=== PATIENT | female | born 1985 | race Caucasian/White ===

== ENCOUNTER 2019-02-19 16:14 | Emergency (ER) | payer BC | END 2019-02-19 18:43 | disposition home or self-care (01) | LOC: ED 16:14 ==

== ENCOUNTER 2024-03-27 19:33 | Emergency (ER) | payer SELFPAY ==
[2024-03-27 20:31] VITALS: TEMP 97.7
[2024-03-27 21:19] LABS: Absolute Neutrophil Ct (ANC) 6.71 x10^3/uL (1.56-6.13); BASOPHIL % 0.6 % (0.1-1.2); Basophil (Absolute #) 0.06 x10^3/uL (0.01-0.08); Eosinophil % 1.5 % (0.7-5.8); Eosinophil (Absolute #) 0.15 x10^3/uL (0.04-0.36); Hematocrit 37.9 % (34.1-44.9); Hemoglobin 12.4 g/dL (11.2-15.7); IMMATURE GRAN # 0.07 x10^3u/L (0.001-0.031); IMMATURE GRAN % 0.7 % (0.001-0.429); Lymphocyte (Absolute #) 2.58 x10^3/uL (1.18-3.74); Lymphocytes % 25.1 % (19.3-51.7); Mean Cell Volume 93.1 fL (79.4-94.8); Mean Corpuscular Hemoglobin 30.5 pg (25.6-32.2); Mean Corpuscular Hgb Concent. 32.7 g/dL (32.2-35.5); Monocyte (Absolute #) 0.69 x10^3/uL (0.24-0.86); Monocytes % 6.7 % (4.7-12.5); Neutrophil % 65.4 % (34.0-71.1); Platelet Count 251 x10^3/uL (182-369); Red Blood Count 4.07 x10^6/uL (3.93-5.22); Red Cell Distribution Width 14.4 % (11.7-14.4); White Blood Count 10.3 x10^3/uL (3.98-10.04)
[2024-03-27] MEDS ORDERED: Zofran 4 MG/2 ML VIAL ONE (21:33)
[2024-03-27] MEDS ORDERED: MORPHINE SULFATE 4 MG INJ ONE (21:34)
[2024-03-27] MEDS ORDERED: Sodium Chloride 0.9% 1000 ML 1,000 ML ONE (21:34)
[2024-03-27] MEDS: Zofran 4 MG/2 ML VIAL IV ONE (21:35)
[2024-03-27] MEDS: MORPHINE SULFATE 4 MG INJ IV ONE (21:35)
[2024-03-27] MEDS: Sodium Chloride 0.9% 1000 ML 1,000 ML IV STA (21:35)
[2024-03-27 21:36] LABS: ALBUMIN 4.4 g/dL (3.5-5.0); ANION GAP 12.3 MEQ/L (5-15); BILIRUBIN,TOTAL 0.5 mg/dL (0.2-1.3); Calcium 9.5 mg/dL (8.4-10.2); Creatinine 1 0.61 mg/dL (0.52-1.04); EST GLOMERULAR FILTRATION RATE 117.3 ML/MIN; Potassium 4.4 mmol/L (3.5-5.1); Total Protein 7.8 g/dL (6.3-8.2)
[2024-03-27 23:07] VITALS: RESP 17
--- NOTE | 2024-03-27 23:33 | ERPHSYRPT ---
- History of Present Illness Time Seen by Provider: 03/27/24 21:00 Source: patient Exam Limitations: no limitations Patient Subjective Stated Complaint: c/o of vomiting blood Triage Nursing Assessment: Pt brought to ED by with c/o of vomiting blood. Patient states that she has recently tried to stop drinking alcohol. Patient went to [facility] on Tuesday for viral illness and was prescribed amoxicillin. Pt went to see her [employer] today for sinus infection today at 1115. Pt states she has a hx of bulimia since 2019, hypertensive, gait steady, pulses normal, bowel sounds present in all 4 quads, no tender with palpatation, last BM was this morning, last oral instake was today around 1800, pt doesn't appear to be in any distress at this time. Physician History: 39-year-old female presents to our ED for evaluation of hematemesis and epigastric pain. Patient states she is bulimic. Patient had an episode of [facility] ed emesis today. Patient observed blood in her vomitus coupled with epigastric pain. Patient became concerned and came to our ED. No trauma no fever. No chest pain or shortness of breath. Symptoms are mild to moderate in intensity. No radiation of pain. Patient otherwise feels well. She voices no other complaints or concerns at this time. Portions of this note were created with voice recognition technology. There may be grammatical, spelling, punctuation or sound alike errors Timing/Duration: today Severity: moderate Modifying Factors: Improves With: nothing Associated Symptoms: denies symptoms Allergies/Adverse Reactions: No Known Drug Allergies Allergy (Verified 03/27/24 20:30) Home Medications: Estradiol 1 mg [Estrace 1 mg] 1 mg PO DAILY 02/19/19 [History] Amoxicillin [AMOXIL 250 MG CAPSULE] 250 mg PO BID 03/27/24 [History] Ascorbic Acid [Vitamin C] 1,000 mg PO DAILY 03/27/24 [History] Calcium Carb, Citrate/Vit D3 [Calcium + D3 ER Tablet] 1 tab PO DAILY 03/27/24 [History] Magnesium 200 mg PO HS 03/27/24 [History] Zinc Amino Acid Chelate [Zinc] 50 mg PO DAILY 03/27/24 [History] Hx Tetanus, Diphtheria Vaccination/Date Given: No Hx Influenza Vaccination/Date Given: No Hx Pneumococcal Vaccination/Date Given: No Travel Risk - International Travel Have you traveled outside of the country in past 3 weeks: No - Emerging Infectious Disease Are you exhibiting symptoms associated with any current EIDs: No - Review of Systems Constitutional: No Symptoms, No Fever, No Chills Eyes: No Symptoms Ears, Nose, & Throat: No Symptoms Respiratory: No Symptoms, No Cough, No Dyspnea Cardiac: No Symptoms, No Chest Pain, No Edema, No Syncope Abdominal/Gastrointestinal: No Symptoms, No Abdominal Pain, No Nausea, No Vomiting, No Diarrhea Genitourinary Symptoms: No Symptoms, No Dysuria Musculoskeletal: No Symptoms, No Back Pain, No Neck Pain Skin: No Symptoms, No Rash Neurological: No Symptoms, No Dizziness, No Focal Weakness, No Sensory Changes Psychological: No Symptoms Endocrine: No Symptoms Hematologic/Lymphatic: No Symptoms Immunological/Allergic: No Symptoms All Other Systems: Reviewed and Negative - Past Medical History Pertinent Past Medical History: No Neurological History: No Pertinent History ENT History: No Pertinent History Cardiac History: No Pertinent History Respiratory History: No Pertinent History Endocrine Medical History: No Pertinent History Musculoskeletal History: No Pertinent History GI Medical History: No Pertinent History, Other History: No Pertinent History Psycho-Social History: No Pertinent History Female Reproductive Disorders: No Pertinent History Other Medical History: buliemia - Past Surgical History Past Surgical History: Yes Neuro Surgical History: No Pertinent History Cardiac: No Pertinent History Respiratory: No Pertinent History Gastrointestinal: Hernia Repair Genitourinary: No Pertinent History Musculoskeletal: No Pertinent History Female Surgical History: Hysterectomy - Female History Hx Last Menstrual Period: hysterectomy 2019 Hx Now: No - Social History Smoking Status: Current every day smoker How long have you smoked: 15 Exposure to second hand smoke: No Drug Use: none Patient Lives Alone: No - Social Determinants of Health Will the patient participate in the screening: Yes Do you worry about a steady place to live?: No Do you have any problems with any of the following?: No known problems In the past 12 months,have you had to go without utilities?: No Transportation Issues: No Has anyone in your support network made you feel unsafe?: No Have you or anyone in your house had to go without enough: No - Nursing Vital Signs Nursing Vital Signs: Initial Vital Signs Temperature 97.7 F 03/27/24 20:13 Pulse Rate 87 03/27/24 20:13 Respiratory Rate 16 03/27/24 20:13 Blood Pressure 171/114 03/27/24 20:13 O2 Sat by Pulse Oximetry 97 03/27/24 20:13 Pain Scale Pain Intensity 8 - Physical Exam General Appearance: no apparent distress, alert Eye Exam: PERRL/EOMI, eyes nml inspection Ears, Nose, Throat Exam: normal ENT inspection, pharynx normal, moist mucous membranes Neck Exam: normal inspection, non-tender, supple, full range of motion Respiratory Exam: normal breath sounds, lungs clear, No respiratory distress Cardiovascular Exam: regular rate/rhythm, normal heart sounds, normal peripheral pulses Gastrointestinal/Abdomen Exam: soft, normal bowel sounds, other (Epic gastric tenderness), No tenderness, No mass Back Exam: normal inspection, normal range of motion, No CVA tenderness, No vertebral tenderness Extremity Exam: normal inspection, normal range of motion, pelvis stable Neurologic Exam: alert, oriented x 3, cooperative, normal mood/affect, nml cerebellar function, nml station & gait, sensation nml, No motor deficits Skin Exam: normal color, warm, dry, No rash Lymphatic Exam: No adenopathy SpO2 Interpretation: normal SpO2: 94 O2 Delivery: Room Air - Course Nursing assessment & vital signs reviewed: Yes - CT Exams Abdomen/Pelvis CT Interpretation: Tele-radiologist Report (No acute findings) Ordered Tests: Active Orders 24 hr Category Date Time Status IV Insertion STAT Care 03/27/24 21:12 Active ABDOMEN AND PELVIS W/0 CONTRAS [CT] Stat Exams 03/27/24 21:12 Taken CBC W DIFF Stat Lab 03/27/24 21:17 Completed CMP Stat Lab 03/27/24 21:17 Completed HCG QUALITATIVE, URINE Stat Lab 03/27/24 23:34 Completed LIPASE Stat Lab 03/27/24 21:17 Completed TROPONIN Q4H Lab 03/27/24 21:17 Completed TROPONIN Q4H Lab 03/28/24 01:15 Ordered TROPONIN Q4H Lab 03/28/24 05:15 Ordered Medication Summary Generic Name Dose Route Start Last Admin Trade Name Freq PRN Reason Stop Dose Admin Pantoprazole Sodium 40 mg 03/27/24 23:53 Pantoprazole 40 Mg Vial IV 03/27/24 23:54 STAT ONE Discontinued Medications Generic Name Dose Route Start Last Admin Trade Name Freq PRN Reason Stop Dose Admin Al Hydrox/Mg Hydrox/Simethicone Confirm 03/27/24 23:51 Mag Hydrox/Al Hydrox/Simeth 30 Ml Udcup Administered 03/27/24 23:52 Dose 30 ml .ROUTE .STK-MED ONE Sodium Chloride 1,000 mls @ 999 mls/hr 03/27/24 21:12 03/27/24 22:47 Sodium Chloride 0.9% 1000 Ml IV 03/27/24 22:12 Infused .Q1H1M STA Infusion Sodium Chloride Confirm 03/27/24 21:34 Sodium Chloride 0.9% 1000 Ml Administered 03/27/24 21:35 Dose 1,000 mls @ ud .ROUTE .STK-MED ONE Lidocaine HCl Confirm 03/27/24 23:51 Lidocaine Hcl 2% Viscous 15 Ml Udcup Administered 03/27/24 23:52 Dose 15 ml .ROUTE .STK-MED ONE Magnesium Hydroxide 45 ml 03/27/24 23:38 Mag Hydrx/Alum Hyd/Simeth/Lido 45 Ml Bottle PO 03/27/24 23:39 STAT ONE Morphine Sulfate 4 mg 03/27/24 21:12 03/27/24 21:35 Morphine Sulfate 4 Mg/Ml Injection IV 03/27/24 21:13 4 mg STAT ONE Administration Morphine Sulfate Confirm 03/27/24 21:34 Morphine Sulfate 4 Mg/Ml Injection Administered 03/27/24 21:35 Dose 4 mg .ROUTE .STK-MED ONE Ondansetron HCl 4 mg 03/27/24 21:12 03/27/24 21:35 Ondansetron Hcl 4 Mg/2 Ml Vial IV 03/27/24 21:13 4 mg STAT ONE Administration Ondansetron HCl Confirm 03/27/24 21:33 Ondansetron Hcl 4 Mg/2 Ml Vial Administered 03/27/24 21:34 Dose 4 mg .ROUTE .STK-MED ONE Lab/Rad Data: Laboratory Result Diagrams 03/27/24 21:17 03/27/24 21:17 Laboratory Results 03/27/24 03/27/24 03/27/24 Range/Units 23:34 21:17 21:17 WBC (3.98-10.04) x10^3/uL RBC (3.93-5.22) x10^6/uL Hgb (11.2-15.7) g/dL Hct (34.1-44.9) % MCV (79.4-94.8) fL MCH (25.6-32.2) pg MCHC (32.2-35.5) g/dL RDW (11.7-14.4) % Plt Count (182-369) x10^3/uL MPV (9.4-12.3) fL Gran % (34.0-71.1) % Immature Gran % (Auto) (0.001-0.429) % Nucleat RBC Rel Count (0.00-0.2) % Eos # (Auto) (0.04-0.36) x10^3/uL Immature Gran # (Auto) (0.001-0.031) x10^3u/L Absolute Lymphs (auto) (1.18-3.74) x10^3/uL Absolute Monos (auto) (0.24-0.86) x10^3/uL Absolute Nucleated RBC (0.00-0.012) x10^3u/L Lymphocytes % (19.3-51.7) % Monocytes % (4.7-12.5) % Eosinophils % (0.7-5.8) % Basophils % (0.1-1.2) % Absolute Granulocytes (1.56-6.13) x10^3/uL Basophils # (0.01-0.08) x10^3/uL Sodium 140 (135-145) mmol/L Potassium 4.4 (3.5-5.1) mmol/L Chloride 107 (98-107) mmol/L Carbon Dioxide 25 (22-30) mmol/L Anion Gap 12.3 (5-15) MEQ/L BUN 9 (7-17) mg/dL Creatinine 0.61 (0.52-1.04) mg/dL Estimated GFR 117.3 ML/MIN Glucose 94 (74-106) mg/dL Calcium 9.5 (8.4-10.2) mg/dL Total Bilirubin 0.50 (0.2-1.3) mg/dL AST 38 H (14-36) U/L ALT 26 (0-35) U/L Alkaline Phosphatase 66 (38-126) U/L Troponin I < 0.012 (0.000-0.033) ng/mL Serum Total Protein 7.8 (6.3-8.2) g/dL Albumin 4.4 (3.5-5.0) g/dL Lipase 280 (23-300) U/L Urine HCG, Qual NEGATIVE (NEGATIVE) 03/27/24 Range/Units 21:17 WBC 10.3 H (3.98-10.04) x10^3/uL RBC 4.07 (3.93-5.22) x10^6/uL Hgb 12.4 (11.2-15.7) g/dL Hct 37.9 (34.1-44.9) % MCV 93.1 (79.4-94.8) fL MCH 30.5 (25.6-32.2) pg MCHC 32.7 (32.2-35.5) g/dL RDW 14.4 (11.7-14.4) % Plt Count 251 (182-369) x10^3/uL MPV 10.0 (9.4-12.3) fL Gran % 65.4 (34.0-71.1) % Immature Gran % (Auto) 0.7 H (0.001-0.429) % Nucleat RBC Rel Count 0.0 (0.00-0.2) % Eos # (Auto) 0.15 (0.04-0.36) x10^3/uL Immature Gran # (Auto) 0.07 H (0.001-0.031) x10^3u/L Absolute Lymphs (auto) 2.58 (1.18-3.74) x10^3/uL Absolute Monos (auto) 0.69 (0.24-0.86) x10^3/uL Absolute Nucleated RBC 0.00 (0.00-0.012) x10^3u/L Lymphocytes % 25.1 (19.3-51.7) % Monocytes % 6.7 (4.7-12.5) % Eosinophils % 1.5 (0.7-5.8) % Basophils % 0.6 (0.1-1.2) % Absolute Granulocytes 6.71 H (1.56-6.13) x10^3/uL Basophils # 0.06 (0.01-0.08) x10^3/uL Sodium (135-145) mmol/L Potassium (3.5-5.1) mmol/L Chloride (98-107) mmol/L Carbon Dioxide (22-30) mmol/L Anion Gap (5-15) MEQ/L BUN (7-17) mg/dL Creatinine (0.52-1.04) mg/dL Estimated GFR ML/MIN Glucose (74-106) mg/dL Calcium (8.4-10.2) mg/dL Total Bilirubin (0.2-1.3) mg/dL AST (14-36) U/L ALT (0-35) U/L Alkaline Phosphatase (38-126) U/L Troponin I (0.000-0.033) ng/mL Serum Total Protein (6.3-8.2) g/dL Albumin (3.5-5.0) g/dL Lipase (23-300) U/L Urine HCG, Qual (NEGATIVE) - Progress Progress: improved Progress Note: Spoke to Dr. Jed Acosta at 1150 regarding concerns for possible Meka-Arreola tear in light of patient's forced vomiting and bleeding. Negative workup in our ED patient's pain is well-controlled. Per Dr. Acosta patient may be discharged home with follow-up in his office. I provided Dr. Acosta patient's name and date of for follow-up. 39-year-old female bulimic presents to our ED for evaluation of some hematemesis post forced vomiting. Hematemesis associated with some epigastric discomfort. No chest pain or shortness of breath. Patient's vomiting was self-induced. Physical exam reveals some epigastric tenderness. Laboratory workup essentially nonremarkable. CT abdomen pelvis essentially nonremarkable. Patient tolerating p.o. No hematemesis observed in our ED. Patient received a GI cocktail as well as a dose of Protonix. Morphine administered for pain control. Patient resting comfortably. No active pain. We will discharge patient home with general surgery follow-up. Portions of this note were created with voice recognition technology. There may be grammatical, spelling, punctuation or sound alike errors 03/27/24 23:50 Complexity problem addressed is moderate acute complicated. No critical care time. Complex data reviewed and analyzed is extensive. Test ordered test reviewed results analyzed and correlated clinically with history and physical exam. Management discussed with general surgery who will follow-up with patient on an outpatient basis. Plan of care discussed with patient. She agrees to follow-up as discussed. Risk of complication and or risk of morbidity/mortality of patient management is moderate. A prescription for Protonix forwarded to patient's pharmacy per Dr. Acosta's recommendations. Vital stable. Time spent to discharge patient is approximately 20 minutes. Plan of care established for shared decision making. No social determinants of health present to impede follow-up. Portions of this note were created with voice recognition technology. There may be grammatical, spelling, punctuation or sound alike errors 03/27/24 23:53 Discussed with : Ana (Case discussed with Dr. Deonte Acosta 1150) Counseled pt/family regarding: lab results, diagnosis, need for follow-up, rad results - Departure Departure Disposition: Home Clinical Impression: Bulimia, Hematemesis Condition: Stable Critical Care Time: No Referrals: JUDY VAZQUEZ [Primary Care Provider] - Follow up/PCP as directed Additional Instructions: Discharge/Care Plan YOSSI DEL ANGEL was seen on 03/27/24 in the Emergency Room. The patient was counseled regarding Diagnosis,Lab results, Imaging studies, need for follow up and when to return to the Emergency Room. Prescriptions given: Discharge Note I have spoken with the patient and/or caregivers. I have explained the patient's condition, diagnosis and treatment plan based on the information available to me at this time. I have answered the patient's and/or caregiver's questions and addressed any concerns. The patient and/or caregivers have as good understanding of the patient's diagnosis, condition and treatment plan as can be expected at this point. The vital signs have been stable. The patient's condition is stable and appropriate for discharge from the emergency department. The patient will pursue further outpatient evaluation with the primary care physician or other designated or consulting physician as outlined in the discharge instructions. The patient and/or caregivers are agreeable to this plan of care and follow-up instructions have been explained in detail. The patient and/or caregivers have received these instruction. The patient/and or caregivers are aware that any significant change in condition or worsening of symptoms should prompt an immediate return to this or the closest emergency department or call 911. Prescriptions: PANTOPRAZOLE 40 mg Tablet [Protonix 40MG Tablet] 40 mg PO QPM 14 Days #14 tab
[2024-03-27 23:39] LABS: HCG URINE TEST NEGATIVE (NEGATIVE)
[2024-03-27] MEDS ORDERED: XYLOCAINE VISCOUS 2% 15 ML CUP ONE (23:51)
[2024-03-27] MEDS ORDERED: MAALOX ES 30 ML UNIT DOSE ONE (23:51)
[2024-03-27] MEDS: GI COCKTAIL 45 ML (Maalox/Lidocaine) PO ONE (23:52)
[2024-03-27] MEDS ORDERED: PROTONIX 40 MG IV IV ONE (23:59)
[2024-03-28] MEDS: PROTONIX 40 MG IV IV ONE
[2024-03-28 00:02] VITALS: BP 125/92; PULSE 77
[2024-03-28 00:06] VITALS: O2SAT 94
--- NOTE | 2024-03-28 08:48 | XRAY ---
Indication: Pain. Multiple contiguous axial images obtained through the abdomen and pelvis without contrast. Comparison: None Lung bases clear. Heart not enlarged. Noncontrasted stomach and bowel loops appear nonobstructed with normal appendix. Previous hysterectomy. No free fluid/air. Remaining liver, gallbladder, pancreas, spleen, adrenal glands, kidneys, ureters, bladder, and aorta are unremarkable for noncontrast exam. Osseous structures intact with mild/moderate degenerative changes throughout the visualized spine and minimal dextroscoliosis centered at L3. No ventral or inguinal hernias. Impression: Chronic bony findings. Remaining CT abdomen/pelvis without contrast exam is negative.
== END 2024-03-28 00:20 | disposition home or self-care (01) ==
LOC: ED 19:33
DX: F50.20 Bulimia nervosa, unspecified (principal); K92.0 Hematemesis; R10.13 Epigastric pain; Z79.899 Other long term (current) drug therapy; Z72.0 Tobacco use
CPT/HCPCS: 36000; 36415; 74176; 80053; 81025; 83690; 84484; 85025; 96374; 96375; 99284; J2270; J2405; A9270-GY

== ENCOUNTER 2024-06-01 11:04 | Emergency (ER) | payer OTHER ==
--- NOTE | 2024-06-01 11:07 | ERPHSYRPT ---
- History of Present Illness Time Seen by Provider: 06/01/24 11:07 Source: patient, old records Exam Limitations: clinical condition Physician History: This is a 39-year-old white female patient who arrives by private vehicle anxious and tearful. Patient states that she wants help with her alcohol use disorder. Patient states that she drinks alcohol often and she supposedly "passed out" at 3:00 this morning. 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 Patient was brought to the hospital by family member. Patient also has been coughing and has substernal, central discomfort with coughing. There is no radiation of pain. Patient has no documented history of coronary artery disease. Patient does have a history of gastroesophageal reflux disease and h istory of bulimia. She has no known drug allergies and she currently takes no medications chronically. She has had a hysterectomy in the past. Patient is not having any hallucinations. She denies suicidal or homicidal ideation. Timing/Duration: today Allergies/Adverse Reactions: No Known Drug Allergies Allergy (Verified 06/01/24 11:19) Home Medications: No Reportable Medications [No Reported Medications] 06/01/24 [History] Hx Tetanus, Diphtheria Vaccination/Date Given: No Hx Influenza Vaccination/Date Given: No Hx Pneumococcal Vaccination/Date Given: No Travel Risk - Emerging Infectious Disease Are you exhibiting symptoms associated with any current EIDs: No - Past Medical History Pertinent Past Medical History: No Neurological History: No Pertinent History ENT History: No Pertinent History Cardiac History: No Pertinent History Respiratory History: No Pertinent History Endocrine Medical History: No Pertinent History Musculoskeletal History: No Pertinent History GI Medical History: No Pertinent History, Other History: No Pertinent History Psycho-Social History: No Pertinent History Female Reproductive Disorders: No Pertinent History Other Medical History: buliemia - Past Surgical History Past Surgical History: Yes Neuro Surgical History: No Pertinent History Cardiac: No Pertinent History Respiratory: No Pertinent History Gastrointestinal: Hernia Repair Genitourinary: No Pertinent History Musculoskeletal: No Pertinent History Female Surgical History: No Pertinent History - Female History Hx Last Menstrual Period: 12/09/13 - Social History Smoking Status: Current every day smoker How long have you smoked: 15 Exposure to second hand smoke: No Drug Use: none Patient Lives Alone: No - Social Determinants of Health Will the patient participate in the screening: Yes Do you worry about a steady place to live?: No In the past 12 months,have you had to go without utilities?: No Transportation Issues: No Has anyone in your support network made you feel unsafe?: No Have you or anyone in your house had to go without enough: No - Nursing Vital Signs Nursing Vital Signs: Initial Vital Signs Temperature 98.0 F 06/01/24 11:07 Pulse Rate 107 H 06/01/24 11:07 Respiratory Rate 15 06/01/24 11:07 Blood Pressure 170/104 06/01/24 11:07 O2 Sat by Pulse Oximetry 99 06/01/24 11:07 Pain Scale Pain Intensity 0 - Course Nursing assessment & vital signs reviewed: Yes EKG Interpreted by Me: RATE (91), Sinus Rhythm, NORMAL AXIS, NORMAL INTERVALS, NORMAL QRS, Other (No acute ischemia. QTc 446.) Ordered Tests: Active Orders 24 hr Category Date Time Status Bill Board Poster STAT Care 06/01/24 11:28 Active Clean Catch Urine Specimen STAT Care 06/01/24 11:28 Active EKG-ER Only STAT Care 06/01/24 11:28 Active IV Insertion STAT Care 06/01/24 11:28 Active CHEST 1 VIEW (PORTABLE) Stat Exams 06/01/24 11:30 Completed ACETAMINOPHEN Stat Lab 06/01/24 11:40 Completed AMYLASE Stat Lab 06/01/24 11:06 Completed CBC W DIFF Stat Lab 06/01/24 11:28 Completed CMP Stat Lab 06/01/24 11:40 Completed ETHYL ALCOHOL Stat Lab 06/01/24 11:40 Completed LIPASE Stat Lab 06/01/24 11:06 Completed MAGNESIUM Stat Lab 06/01/24 11:40 Completed SALICYLATE Stat Lab 06/01/24 11:40 Completed TROPONIN Q4H Lab 06/01/24 11:40 Completed TROPONIN Q4H Lab 06/01/24 15:55 Received TROPONIN Q4H Lab 06/01/24 19:45 Ordered TROPONIN Q4H Lab 06/01/24 23:45 Ordered UA W/RFX UR CULTURE Stat Lab 06/01/24 11:33 Completed Urine Triage Profile Stat Lab 06/01/24 11:33 Completed Medication Summary Discontinued Medications Generic Name Dose Route Start Last Admin Trade Name Freq PRN Reason Stop Dose Admin Sodium Chloride 1,000 mls @ 999 mls/hr 06/01/24 11:30 06/01/24 12:40 Sodium Chloride 0.9% 1000 Ml IV 06/01/24 12:30 Infused .Q1H1M STA Infusion Sodium Chloride Confirm 06/01/24 11:34 Sodium Chloride 0.9% 1000 Ml Administered 06/01/24 11:35 Dose 1,000 mls @ ud .ROUTE .STK-MED ONE Lorazepam 1 mg 06/01/24 11:28 06/01/24 11:35 Lorazepam 2 Mg/1 Ml 2 Mg Vial IV 06/01/24 11:29 1 mg STAT ONE Administration Lorazepam Confirm 06/01/24 11:34 Lorazepam 2 Mg/1 Ml 2 Mg Vial Administered 06/01/24 11:35 Dose 2 mg .ROUTE .STK-MED ONE Ondansetron HCl 4 mg 06/01/24 11:28 06/01/24 11:35 Ondansetron Hcl 4 Mg/2 Ml Vial IV 06/01/24 11:29 4 mg STAT ONE Administration Ondansetron HCl Confirm 06/01/24 11:33 Ondansetron Hcl 4 Mg/2 Ml Vial Administered 06/01/24 11:34 Dose 4 mg .ROUTE .STK-MED ONE Pantoprazole Sodium 40 mg 06/01/24 11:40 06/01/24 11:43 Pantoprazole 40 Mg Vial IV 06/01/24 11:41 40 mg STAT ONE Administration Pantoprazole Sodium Confirm 06/01/24 11:42 Pantoprazole 40 Mg Vial Administered 06/01/24 11:43 Dose 40 mg IV .STK-MED ONE Lab/Rad Data: Laboratory Result Diagrams 06/01/24 11:28 06/01/24 11:40 Laboratory Results 06/01/24 06/01/24 06/01/24 Range/Units 12:12 11:40 11:40 WBC (3.98-10.04) x10^3/uL RBC (3.93-5.22) x10^6/uL Hgb (11.2-15.7) g/dL Hct (34.1-44.9) % MCV (79.4-94.8) fL MCH (25.6-32.2) pg MCHC (32.2-35.5) g/dL RDW (11.7-14.4) % Plt Count (182-369) x10^3/uL MPV (9.4-12.3) fL Gran % (34.0-71.1) % Immature Gran % (Auto) (0.001-0.429) % Nucleat RBC Rel Count (0.00-0.2) % Eos # (Auto) (0.04-0.36) x10^3/uL Immature Gran # (Auto) (0.001-0.031) x10^3u/L Absolute Lymphs (auto) (1.18-3.74) x10^3/uL Absolute Monos (auto) (0.24-0.86) x10^3/uL Absolute Nucleated RBC (0.00-0.012) x10^3u/L Lymphocytes % (19.3-51.7) % Monocytes % (4.7-12.5) % Eosinophils % (0.7-5.8) % Basophils % (0.1-1.2) % Absolute Granulocytes (1.56-6.13) x10^3/uL Basophils # (0.01-0.08) x10^3/uL Sodium 136 (135-145) mmol/L Potassium 4.2 (3.5-5.1) mmol/L Chloride 102 (98-107) mmol/L Carbon Dioxide 20 L (22-30) mmol/L Anion Gap 17.5 H (5-15) MEQ/L BUN 11 (7-17) mg/dL Creatinine 0.55 (0.52-1.04) mg/dL Estimated GFR 120.3 ML/MIN Glucose 93 (74-106) mg/dL Calcium 10.3 H (8.4-10.2) mg/dL Magnesium 1.5 L (1.6-2.3) mg/dL Total Bilirubin 0.70 (0.2-1.3) mg/dL AST 86 H (14-36) U/L ALT 65 H (0-35) U/L Alkaline Phosphatase 77 (38-126) U/L Troponin I < 0.012 (0.000-0.033) ng/mL Serum Total Protein 7.8 (6.3-8.2) g/dL Albumin 4.7 (3.5-5.0) g/dL Amylase (30-110) U/L Lipase (23-300) U/L Urine Color (Yellow) Urine Appearance (Clear) Urine pH (4.6-8.0) Ur Specific [place] (1.005-1.030) Urine Protein (Negative) Urine Glucose (UA) (Negative) mg/dL Urine Ketones (Negative) Urine Blood (Negative) Urine Nitrite (Negative) Urine Bilirubin (Negative) Urine Urobilinogen (0.2) mg/dL Ur Leukocyte Esterase (Negative) U Hyaline Cast (Auto) (0-2) /LPF Urine Microscopic RBC (0-5) /HPF Urine Microscopic WBC (0-5) /HPF Ur Epithelial Cells (None Seen) /HPF Urine Bacteria (None Seen) /HPF Urine Culture Reflexed (NO) Salicylates < 1.0 L (2-20) mg/dL Urine Opiates Level (NEGATIVE) Ur Methadone (NEGATIVE) Acetaminophen < 10 L (10-30) ug/ml Urine Barbiturates (NEGATIVE) Ur Phencyclidine (PCP) (NEGATIVE) Urine Amphetamine (NEGATIVE) U Benzodiazepine Level (NEGATIVE) Urine Cocaine (NEGATIVE) Urine Marijuana (THC) (NEGATIVE) Ethyl Alcohol < 10 (0-10) mg/dL Influenza Type A Ag NEGATIVE (NEGATIVE) Influenza Type B Ag NEGATIVE (NEGATIVE) RSV (PCR) NEGATIVE (NEGATIVE) SARS-CoV-2 (PCR) NEGATIVE (NEGATIVE) 06/01/24 06/01/24 06/01/24 Range/Units 11:33 11:33 11:28 WBC 8.6 (3.98-10.04) x10^3/uL RBC 4.31 (3.93-5.22) x10^6/uL Hgb 13.0 (11.2-15.7) g/dL Hct 39.0 (34.1-44.9) % MCV 90.5 (79.4-94.8) fL MCH 30.2 (25.6-32.2) pg MCHC 33.3 (32.2-35.5) g/dL RDW 14.6 H (11.7-14.4) % Plt Count 251 (182-369) x10^3/uL MPV 9.6 (9.4-12.3) fL Gran % 61.4 (34.0-71.1) % Immature Gran % (Auto) 0.9 H (0.001-0.429) % Nucleat RBC Rel Count 0.0 (0.00-0.2) % Eos # (Auto) 0.10 (0.04-0.36) x10^3/uL Immature Gran # (Auto) 0.08 H (0.001-0.031) x10^3u/L Absolute Lymphs (auto) 2.54 (1.18-3.74) x10^3/uL Absolute Monos (auto) 0.55 (0.24-0.86) x10^3/uL Absolute Nucleated RBC 0.00 (0.00-0.012) x10^3u/L Lymphocytes % 29.4 (19.3-51.7) % Monocytes % 6.4 (4.7-12.5) % Eosinophils % 1.2 (0.7-5.8) % Basophils % 0.7 (0.1-1.2) % Absolute Granulocytes 5.30 (1.56-6.13) x10^3/uL Basophils # 0.06 (0.01-0.08) x10^3/uL Sodium (135-145) mmol/L Potassium (3.5-5.1) mmol/L Chloride (98-107) mmol/L Carbon Dioxide (22-30) mmol/L Anion Gap (5-15) MEQ/L BUN (7-17) mg/dL Creatinine (0.52-1.04) mg/dL Estimated GFR ML/MIN Glucose (74-106) mg/dL Calcium (8.4-10.2) mg/dL Magnesium (1.6-2.3) mg/dL Total Bilirubin (0.2-1.3) mg/dL AST (14-36) U/L ALT (0-35) U/L Alkaline Phosphatase (38-126) U/L Troponin I (0.000-0.033) ng/mL Serum Total Protein (6.3-8.2) g/dL Albumin (3.5-5.0) g/dL Amylase (30-110) U/L Lipase (23-300) U/L Urine Color Yellow (Yellow) Urine Appearance Clear (Clear) Urine pH 7.5 (4.6-8.0) Ur Specific [place] <=1.005 (1.005-1.030) Urine Protein Negative (Negative) Urine Glucose (UA) Negative (Negative) mg/dL Urine Ketones Negative (Negative) Urine Blood Negative (Negative) Urine Nitrite Negative (Negative) Urine Bilirubin Negative (Negative) Urine Urobilinogen 0.2 (0.2) mg/dL Ur Leukocyte Esterase Trace A (Negative) U Hyaline Cast (Auto) NONE SEEN (0-2) /LPF Urine Microscopic RBC 0-2 (0-5) /HPF Urine Microscopic WBC 3-5 (0-5) /HPF Ur Epithelial Cells Few (None Seen) /HPF Urine Bacteria None Seen (None Seen) /HPF Urine Culture Reflexed NO (NO) Salicylates (2-20) mg/dL Urine Opiates Level NEGATIVE (NEGATIVE) Ur Methadone NEGATIVE (NEGATIVE) Acetaminophen (10-30) ug/ml Urine Barbiturates NEGATIVE (NEGATIVE) Ur Phencyclidine (PCP) NEGATIVE (NEGATIVE) Urine Amphetamine NEGATIVE (NEGATIVE) U Benzodiazepine Level NEGATIVE (NEGATIVE) Urine Cocaine NEGATIVE (NEGATIVE) Urine Marijuana (THC) NEGATIVE (NEGATIVE) Ethyl Alcohol (0-10) mg/dL Influenza Type A Ag (NEGATIVE) Influenza Type B Ag (NEGATIVE) RSV (PCR) (NEGATIVE) SARS-CoV-2 (PCR) (NEGATIVE) 06/01/24 Range/Units 11:06 WBC (3.98-10.04) x10^3/uL RBC (3.93-5.22) x10^6/uL Hgb (11.2-15.7) g/dL Hct (34.1-44.9) % MCV (79.4-94.8) fL MCH (25.6-32.2) pg MCHC (32.2-35.5) g/dL RDW (11.7-14.4) % Plt Count (182-369) x10^3/uL MPV (9.4-12.3) fL Gran % (34.0-71.1) % Immature Gran % (Auto) (0.001-0.429) % Nucleat RBC Rel Count (0.00-0.2) % Eos # (Auto) (0.04-0.36) x10^3/uL Immature Gran # (Auto) (0.001-0.031) x10^3u/L Absolute Lymphs (auto) (1.18-3.74) x10^3/uL Absolute Monos (auto) (0.24-0.86) x10^3/uL Absolute Nucleated RBC (0.00-0.012) x10^3u/L Lymphocytes % (19.3-51.7) % Monocytes % (4.7-12.5) % Eosinophils % (0.7-5.8) % Basophils % (0.1-1.2) % Absolute Granulocytes (1.56-6.13) x10^3/uL Basophils # (0.01-0.08) x10^3/uL Sodium (135-145) mmol/L Potassium (3.5-5.1) mmol/L Chloride (98-107) mmol/L Carbon Dioxide (22-30) mmol/L Anion Gap (5-15) MEQ/L BUN (7-17) mg/dL Creatinine (0.52-1.04) mg/dL Estimated GFR ML/MIN Glucose (74-106) mg/dL Calcium (8.4-10.2) mg/dL Magnesium (1.6-2.3) mg/dL Total Bilirubin (0.2-1.3) mg/dL AST (14-36) U/L ALT (0-35) U/L Alkaline Phosphatase (38-126) U/L Troponin I (0.000-0.033) ng/mL Serum Total Protein (6.3-8.2) g/dL Albumin (3.5-5.0) g/dL Amylase 82 (30-110) U/L Lipase 217 (23-300) U/L Urine Color (Yellow) Urine Appearance (Clear) Urine pH (4.6-8.0) Ur Specific [place] (1.005-1.030) Urine Protein (Negative) Urine Glucose (UA) (Negative) mg/dL Urine Ketones (Negative) Urine Blood (Negative) Urine Nitrite (Negative) Urine Bilirubin (Negative) Urine Urobilinogen (0.2) mg/dL Ur Leukocyte Esterase (Negative) U Hyaline Cast (Auto) (0-2) /LPF Urine Microscopic RBC (0-5) /HPF Urine Microscopic WBC (0-5) /HPF Ur Epithelial Cells (None Seen) /HPF Urine Bacteria (None Seen) /HPF Urine Culture Reflexed (NO) Salicylates (2-20) mg/dL Urine Opiates Level (NEGATIVE) Ur Methadone (NEGATIVE) Acetaminophen (10-30) ug/ml Urine Barbiturates (NEGATIVE) Ur Phencyclidine (PCP) (NEGATIVE) Urine Amphetamine (NEGATIVE) U Benzodiazepine Level (NEGATIVE) Urine Cocaine (NEGATIVE) Urine Marijuana (THC) (NEGATIVE) Ethyl Alcohol (0-10) mg/dL Influenza Type A Ag (NEGATIVE) Influenza Type B Ag (NEGATIVE) RSV (PCR) (NEGATIVE) SARS-CoV-2 (PCR) (NEGATIVE) - Progress Progress: improved, re-examined Air Movement: good Progress Note: 06/01/24 11:42 My medical decision making and the assignment of moderate complexity to this patient's medical issue today is based on review of the patient's past medical history, review the patient's medication list, review the patient drug allergy list, history present illness and physical findings on examination. The workup in this patient includes placement of intravenous line, infusion of normal saline solution, infusion of Zofran, infusion of Protonix, infusion of Ativan, chest x-ray, twelve-lead EKG, troponin level, magnesium level, CBC, CMP, amylase, lipase, salicylate level, acetaminophen level, ethyl alcohol level, urinalysis, urine drug triage. We will also order viral swabs. Differential diagnosis includes but is not limited to anxiety, alcohol withdrawal, electrolyte abnormalities, other psychiatric entities, dehydration, urinary tract infection, myocardial infarction, arrhythmias, pneumonia, viral illness 06/01/24 16:36 I interpreted the patient's laboratory data results. There are no acute, emergent medical findings based on the laboratory data results. Patient told the mental health providers from [facility], during her interview with them, she was in fact suicidal and therefore it is recommended that this patient be placed into an inpatient setting. 06/01/24 16:37 Blood Culture(s) Obtained: No Antibiotics given: No Counseled pt/family regarding: lab results, diagnosis Medical Desision Making - Diagnostic Testing Diagnostic test were ordered, analyzed, and reviewed by me: Yes - Risk of complications The pt has a high risk of morbidity or mortality based on: Decision regarding hospitilization or escalation of hosp level of care - Departure Departure Disposition: Transfer Clinical Impression: Alcohol abuse with alcohol-induced disorder, Panic disorder, Suicidal ideation Condition: Stable Critical Care Time: No Referrals: JUDY VAZQUEZ [Primary Care Provider] - Follow up/PCP as directed
[2024-06-01 11:19] VITALS: TEMP 98
[2024-06-01] MEDS ORDERED: Zofran 4 MG/2 ML VIAL ONE ×3 (11:33→21:51)
[2024-06-01] MEDS: Sodium Chloride 0.9% 1000 ML 1,000 ML IV STA (11:34)
[2024-06-01] MEDS ORDERED: Sodium Chloride 0.9% 1000 ML 1,000 ML ONE (11:34)
[2024-06-01] MEDS ORDERED: Ativan 2 MG/1 ML VIAL ONE (11:34)
[2024-06-01] MEDS: Ativan 2 MG/1 ML VIAL IV ONE (11:35)
[2024-06-01] MEDS: Zofran 4 MG/2 ML VIAL IV ONE ×2 (11:35→21:50)
[2024-06-01 11:42] LABS: BASOPHIL % 0.7 % (0.1-1.2); Basophil (Absolute #) 0.06 x10^3/uL (0.01-0.08); Eosinophil % 1.2 % (0.7-5.8); IMMATURE GRAN # 0.08 x10^3u/L (0.001-0.031); IMMATURE GRAN % 0.9 % (0.001-0.429); Lymphocyte (Absolute #) 2.54 x10^3/uL (1.18-3.74); Lymphocytes % 29.4 % (19.3-51.7); Mean Cell Volume 90.5 fL (79.4-94.8); Mean Corpuscular Hemoglobin 30.2 pg (25.6-32.2); Mean Corpuscular Hgb Concent. 33.3 g/dL (32.2-35.5); Mean Platelet Volume 9.6 fL (9.4-12.3); Monocyte (Absolute #) 0.55 x10^3/uL (0.24-0.86); Monocytes % 6.4 % (4.7-12.5); Neutrophil % 61.4 % (34.0-71.1); Platelet Count 251 x10^3/uL (182-369); Red Blood Count 4.31 x10^6/uL (3.93-5.22); Red Cell Distribution Width 14.6 % (11.7-14.4); White Blood Count 8.6 x10^3/uL (3.98-10.04)
[2024-06-01] MEDS ORDERED: PROTONIX 40 MG IV IV ONE (11:42)
[2024-06-01] MEDS: PROTONIX 40 MG IV IV ONE (11:43)
[2024-06-01 11:57] LABS: ACETAMINOPHEN < 10 ug/ml (10-30); ALBUMIN 4.7 g/dL (3.5-5.0); ALKALINE PHOSPHATASE 77 U/L (38-126); ANION GAP 17.5 MEQ/L (5-15); BLOOD UREA NITROGEN 11 mg/dL (7-17); CHLORIDE 102 mmol/L (98-107); Calcium 10.3 mg/dL (8.4-10.2); Carbon Dioxide 20 mmol/L (22-30); Creatinine 1 0.55 mg/dL (0.52-1.04); EST GLOMERULAR FILTRATION RATE 120.3 ML/MIN; ETHYL ALCOHOL < 10 mg/dL (0-10); Glucose 93 mg/dL (74-106); MAGNESIUM 1.5 mg/dL (1.6-2.3); Potassium 4.2 mmol/L (3.5-5.1); SALICYLATE < 1.0 mg/dL (2-20); SGOT/AST 86 U/L (14-36); SGPT/ALT 65 U/L (0-35); SODIUM 136 mmol/L (135-145); Total Protein 7.8 g/dL (6.3-8.2)
--- NOTE | 2024-06-01 12:10 | XRAY ---
Indication: Cough. Comparison: None Portable chest demonstrates normal heart, lungs, and bony thorax was incidental tiny left upper lobe calcified granuloma.
[2024-06-01 12:15] LABS: Amphetamine,Urine NEGATIVE (NEGATIVE); Barbiturate,Urine NEGATIVE (NEGATIVE); Benzodiazepine,Urine NEGATIVE (NEGATIVE); Cocaine,Urine NEGATIVE (NEGATIVE); Methadone,Urine NEGATIVE (NEGATIVE); Opiate,Urine NEGATIVE (NEGATIVE); PCP,Urine NEGATIVE (NEGATIVE); THC,Urine NEGATIVE (NEGATIVE)
[2024-06-01 12:16] LABS: AMYLASE 82 U/L (30-110); LIPASE 217 U/L (23-300)
[2024-06-01 12:18] LABS: Appearance Clear (Clear); Bacteria None Seen /HPF (None Seen); Bilirubin Negative (Negative); Blood Negative (Negative); Epithelial Cells Few /HPF (None Seen); Glucose, Urine Negative (Negative); Hyaline Casts NONE SEEN /LPF (0-2); Ketones Negative (Negative); Leukocyte Esterase Trace (Negative); Nitrite Negative (Negative); Ph 7.5 (4.6-8.0); Protein,Urine Dip Negative (Negative); RBC 0-2 /HPF (0-5); Specific Gravity <=1.005 (1.005-1.030); Urobilinogen 0.2 mg/dL (0.2)
[2024-06-01 12:57] LABS: INFLUENZA A NEGATIVE (NEGATIVE); INFLUENZA B NEGATIVE (NEGATIVE); RESPIRATORY SYNCTIAL VIRUS NEGATIVE (NEGATIVE); SARS-CoV-2 Xpert Express NEGATIVE (NEGATIVE)
[2024-06-01 23:42] VITALS: BP 124/80; PULSE 87; RESP 16; O2SAT 98
== END 2024-06-01 23:50 ==
LOC: ED 11:04
DX: F10.19 Alcohol abuse with unspecified alcohol-induced disorder (principal); F41.0 Panic disorder [episodic paroxysmal anxiety]; R45.851 Suicidal ideations
CPT/HCPCS: 0241U; 36415; 71045; 80053; 80143; 80179; 80307; 81001; 82077; 82150; 83690; 83735; 84484; 85025; 93005; 93041; 96360; 96374; 96375; 99285; 96376; J2060; J2405